=== PATIENT | female | born 1950 | race Two or more races ===

== ENCOUNTER 2018-09-09 11:11 | Outpatient (CLI) | payer OTHER | END 2018-09-09 11:14 | disposition home or self-care (01) | LOC: MAMO-SONO 11:11 | DX: Z12.31 Encounter for screening mammogram for malignant neoplasm of breast (principal); Z87.898 Personal history of other specified conditions; N60.11 Diffuse cystic mastopathy of right breast; N60.12 Diffuse cystic mastopathy of left breast ==

== ENCOUNTER → 2018-09-09 | Outpatient (CLI) | payer OTHER | END | disposition home or self-care (01) | LOC: NUCLEAR 09:58 | DX: M81.0 Age-related osteoporosis without current pathological fracture (principal) ==

== ENCOUNTER 2022-09-26 13:45 | Outpatient (CLI) | payer OTHER | END 2022-09-26 14:01 | disposition home or self-care (01) | LOC: RAD 13:45 | DX: M79.671 Pain in right foot (principal) ==

== ENCOUNTER 2023-03-19 12:52 | Outpatient (CLI) | payer OTHER | END 2023-03-19 12:59 | disposition home or self-care (01) | LOC: RAD 12:52 | PROVIDERS: ATTEND Internal Medicine | DX: M54.50 Low back pain, unspecified (principal); M25.551 Pain in right hip; M25.552 Pain in left hip ==

== ENCOUNTER 2023-04-16 14:04 | Outpatient (CLI) | payer OTHER | END 2023-04-16 14:17 | disposition home or self-care (01) | LOC: TOM 14:04 | PROVIDERS: ATTEND Internal Medicine | DX: S00.93XA Contusion of unspecified part of head, initial encounter (principal) ==

== ENCOUNTER 2023-05-07 14:21 | Outpatient (CLI) | payer OTHER | END 2023-05-07 14:30 | disposition home or self-care (01) | LOC: RAD 14:21 | PROVIDERS: ATTEND Internal Medicine | DX: M79.645 Pain in left finger(s) (principal); M79.644 Pain in right finger(s); M25.511 Pain in right shoulder; M25.512 Pain in left shoulder ==

== ENCOUNTER 2023-06-27 13:38 | Outpatient (CLI) | payer OTHER | END 2023-06-27 13:48 | disposition home or self-care (01) | LOC: RAD 13:38 | PROVIDERS: ATTEND Physical Medicine & Rehabilitation | DX: M75.81 Other shoulder lesions, right shoulder (principal); M54.2 Cervicalgia ==

== ENCOUNTER 2024-01-16 14:11 | Outpatient (CLI) | payer OTHER | END 2024-01-16 15:22 | disposition home or self-care (01) | LOC: MRI 14:11 | PROVIDERS: ATTEND Internal Medicine | DX: M25.562 Pain in left knee (principal); M25.511 Pain in right shoulder | CPT/HCPCS: 73218 ==

== ENCOUNTER → 2024-08-19 | Emergency (ER) | payer OTHER ==
[~2024-08-19] VITALS: Ht 152.4 cm; Wt 63.5 kg
[~2024-08-19] MED LIST: NORVASC10 MG PO
== END | disposition home or self-care (01) ==
LOC: ER 19:03
DX: S63.592A Other specified sprain of left wrist, initial encounter (principal); W19.XXXA Unspecified fall, initial encounter; Y93.89 Activity, other specified; Y92.89 Other specified places as the place of occurrence of the external cause; Y99.8 Other external cause status; I10 Essential (primary) hypertension; Z88.8 Allergy status to other drugs, medicaments and biological substances

== ENCOUNTER 2024-10-13 12:40 | Outpatient (CLI) | payer OTHER | END 2024-10-13 12:47 | disposition home or self-care (01) | LOC: SONOGRAMA 12:40 | PROVIDERS: ATTEND Physical Medicine & Rehabilitation | DX: M76.01 Gluteal tendinitis, right hip (principal); M76.02 Gluteal tendinitis, left hip ==